=== PATIENT | male | born 1995 | race Two or more races ===

== ENCOUNTER 2016-12-13 12:47 | Emergency (ER) | payer SELFPAY ==
[~2016-12-13] VITALS: Ht 167.6 cm; Wt 71.7 kg
[2016-12-13 13:20] VITALS: BP 106/61
--- NOTE | 2016-12-13 14:36 | RAD ---
MAXILLOFACIAL WO CONTRAST History:pain, facial injury Technique: Noncontrast CT imaging was performed of the maxillofacial region, multiplanar reconstruction images submitted. Exposure: One or more of the following individualized dose reduction techniques were utilized for this exam: 1. Automated exposure control. 2. Adjustment of the mA and/or KV according to patient size. 3. Use of iterative reconstruction technique. Comparison: None Findings:There is large air-fluid level of the left maxillary sinus compatible with layering blood products. There is comminuted displaced fracture of the left lateral maxillary sinus, also comminuted fracture of the anterior left maxillary sinus wall. There is also fracture of the left lateral orbital wall with mild comminution. There is also fracture of the left inferior orbital wall without significant displacement. There is also bone defect of the left posterior zygomatic arch, uncertain chronicity. Globes are symmetric in size and density characteristics, no asymmetric post septal density identified. There is [id number] mucosal thickening at the floor of the right maxillary sinus. There is left facial soft tissue swelling/hematoma. Impression: 1.There are comminuted fractures of the left anterior and lateral maxillary upton, also of the left lateral orbital wall and nondisplaced fracture of the left inferior orbital wall. There is also bony defect of the posterior left zygomatic arch of uncertain chronicity. There is dependent hemorrhage left maxillary sinus.
[2016-12-13] MEDS ORDERED: HYDR-971 PO (15:42)
[2016-12-13] MEDS ORDERED: CYCL10TA2 PO (15:42)
--- NOTE | 2016-12-13 15:42 | PHYS DOC ---
Past Medical History Past Medical History: No Pertinent History Past Surgical History: No Surgical History Alcohol Use: None Drug Use: None Adult General Chief Complaint Chief Complaint: EYE PROBLEMS [facility] HPI Patient is a 21 year old female who presents with left facial swelling that began this afternoon after he got heat by 2 x 4 wooden piece at work. He works for [employer]. Review of Systems Review of Systems Constitutional: Denies fever or chills [] Eyes: Left eye redness HENT: Denies nasal congestion or sore throat [] Respiratory: Denies cough or shortness of breath [] Cardiovascular: No additional information not addressed in HPI [] GI: Denies abdominal pain, nausea, vomiting, bloody stools or diarrhea [] : Denies dysuria or hematuria [] Musculoskeletal: Denies back pain or joint pain [] Integument: Left facial swelling Neurologic: Denies headache, focal weakness or sensory changes [] Endocrine: Denies polyuria or polydipsia [] Allergies Allergies Allergies Coded Allergies Type Severity Reaction Last Updated Verified No Known Drug Allergies 12/13/16 No Physical Exam Physical Exam Constitutional: Well developed, well nourished, no acute distress, non-toxic appearance. [] HENT: Normocephalic, atraumatic, bilateral external ears normal, oropharynx moist, no oral exudates, nose normal. [] Eyes: PERRLA, EOMI, small amount of left lateral eye subconjunctival hemorrhage noted on exam. NO intrapement noted on exam of the left eye. Neck: Normal range of motion, no tenderness, supple, no stridor. [] Cardiovascular:Heart rate regular rhythm, no murmur [] Lungs & Thorax: Bilateral breath sounds clear to auscultation [] Abdomen: Bowel sounds normal, soft, no tenderness, no masses, no pulsatile masses. [] Skin: Mild contusion noted on patient's left facial area. Back: No tenderness, no CVA tenderness. [] Extremities: No tenderness, no cyanosis, no clubbing, ROM intact, no edema. [] Neurologic: Alert and oriented X 3, normal motor function, normal sensory function, no focal deficits noted. [] Psychologic: Affect normal, judgement normal, mood normal. [] Current Patient Data Vital Signs Vital Signs Date Time Temp Pulse Resp B/P Pulse Ox O2 Delivery O2 Flow Rate FiO2 12/13/16 13:20 97.6 56 16 106/61 96 Room Air 97.6 EKG EKG [] Radiology/Procedures Radiology/Procedures []PROCEDURE: MAXILLOFACIAL WO CONTRAST MAXILLOFACIAL WO CONTRAST History:pain, facial injury Technique: Noncontrast CT imaging was performed of the maxillofacial region, multiplanar reconstruction images submitted. Exposure: One or more of the following individualized dose reduction techniques were utilized for this exam: 1. Automated exposure control. 2. Adjustment of the mA and/or KV according to patient size. 3. Use of iterative reconstruction technique. Comparison: None Findings:There is large air-fluid level of the left maxillary sinus compatible with layering blood products. There is comminuted displaced fracture of the left lateral maxillary sinus, also comminuted fracture of the anterior left maxillary sinus wall. There is also fracture of the left lateral orbital wall with mild comminution. There is also fracture of the left inferior orbital wall without significant displacement. There is also bone defect of the left posterior zygomatic arch, uncertain chronicity. Globes are symmetric in size and density characteristics, no asymmetric post septal density identified. There is [id number] mucosal thickening at the floor of the right maxillary sinus. There is left facial soft tissue swelling/hematoma. Impression: 1.There are comminuted fractures of the left anterior and lateral maxillary upton, also of the left lateral orbital wall and nondisplaced fracture of the left inferior orbital wall. There is also bony defect of the posterior left zygomatic arch of uncertain chronicity. There is dependent hemorrhage left maxillary sinus. DICTATED and SIGNED BY: GOYO ORDONEZ MD DATE: 12/13/16 0434 CC: STEPHANIE BROWN APRN ~ Course & Med Decision Making Course & Med Decision Making Pertinent Labs and Imaging studies reviewed. (See chart for details) Patient is in the ED with left facial injury after being hit by a 2 x 4 wooden board at work. Does not loss of consciousness. He does have subconjunctival hemorrhage on the left lateral eye with no entrapment syndrome. CT of maxillary facial was noted for comminuted fractures of the left anterior and lateral maxillary upton, left lateral orbital wall, a nondisplaced fracture of the inferior orbital wall. There was a bony defect of the left posterior left zygomatic at all for certain chronicity. There is no nosebleeding. Patient was discharged with a give Augmentin. He is to follow-up with [facility] maxillary facial surgeon on Thursday. He was provided pain medicines and discharged in stable condition. Dragon Disclaimer Dragon Disclaimer This electronic medical record was generated, in whole or in part, using a voice recognition dictation system. Departure Departure Impression: Primary Impression: Maxillary fracture Additional Impression: Orbital wall fracture Disposition: HOME, SELF-CARE Condition: STABLE Referrals: NO PCP (PCP) follow up with your doctor in one week Patient Instructions: Facial Fracture Additional Instructions: You have comminuted fractures of the left anterior and lateral maxillary upton, orbital wall, and nondisplaced left inferior orbital wall fracture. Please follow-up with [facility], the number is [phone] and ask for maxillary facial surgeon. Complete your antibiotics. Come back to the emergency room at any point if symptoms worsen especially if you eye gets trapped in one location and is not able to move around. Scripts Amoxicillin/Potassium Clav (Augmentin 875-125 Tablet)1 Each Tablet1 Tab PO BID # 20 TAB Prov:STEPHANIE BROWN APRN 12/13/16 Cyclobenzaprine Hcl 10 Mg Tablet1 Tab PO TID #30 TAB Prov:STEPHANIE BROWN APRN 12/13/16 Hydrocodone/Apap 5-325 (Cross 5-325 Tablet)1 Each Tablet1-2 Tab PO Q4-6HRS #30 TAB Prov:STEPHANIE BROWN APRN 12/13/16 Problem Qualifiers Primary Impression: Maxillary fracture Encounter type: initial encounter Fracture type: closed Laterality: left Qualified Code: S02.40DA - Maxillary fracture, left side, initial encounter for closed fracture Additional Impression: Orbital wall fracture Encounter type: initial encounter Fracture type: closed Qualified Code: S02.80XA - Fracture of other specified skull and facial bones, unspecified side , initial encounter for closed fracture STEPHANIE BROWN APRN Dec 13, 2016 15:42
[2016-12-13] MEDS ORDERED: AMOX1TAB61 PO (15:43)
== END 2016-12-13 15:54 | disposition home or self-care (01) ==
LOC: ER 12:47
DX: S02.40DA Maxillary fracture, left side, initial encounter for closed fracture (principal); S02.82XA Fracture of other specified skull and facial bones, left side, initial encounter for closed fracture; X58.XXXA Exposure to other specified factors, initial encounter; Y93.89 Activity, other specified; Y99.0 Civilian activity done for income or pay; Y92.69 Other specified industrial and construction area as the place of occurrence of the external cause
CPT/HCPCS: 70486; 99284-25